=== PATIENT | female | born 1960 | race Two or more races ===

== ENCOUNTER 2024-06-14 07:14 | Outpatient (CLI) | payer OTHER | END 2024-06-14 07:16 | disposition home or self-care (01) | LOC: NUCLEAR 07:14 | PROVIDERS: ATTEND Internal Medicine | DX: E05.90 Thyrotoxicosis, unspecified without thyrotoxic crisis or storm (principal) | CPT/HCPCS: 78014; A9512 ==

== ENCOUNTER 2024-06-15 07:09 | Outpatient (CLI) | payer OTHER | END 2024-06-15 07:10 | disposition home or self-care (01) | LOC: NUCLEAR 07:09 | PROVIDERS: ATTEND Internal Medicine | DX: E05.90 Thyrotoxicosis, unspecified without thyrotoxic crisis or storm (principal) | CPT/HCPCS: 78014; A9512; A9531 ==